=== PATIENT | female | born 1990 | race Hispanic/Latino ===

== ENCOUNTER 2019-04-14 12:05 | Emergency (ER) | payer SELFPAY ==
--- NOTE | 2019-04-14 13:19 | ER ---
Nurse's Notes [facility] Name: Juliet Guzmán Age: 28 yrs Sex: Female : 1990 Arrival Date: 04/14/2019 Time: 12:07 Bed Treatment Private MD: Diagnosis: Influenza due to other identified influenza virus-flu B Presentation: 04/14 12:24 Presenting complaint: Patient states: Chills and body aches since yesterday, daughter yajaira just got over the flu. Transition of care: patient was not received from another setting of care. Onset of symptoms was April 13, 2019. Risk Assessment: Do you want to hurt yourself or someone else? Patient reports no desire to harm self or others. Initial Sepsis Screen: Does the patient meet any 2 criteria? No. Patient's initial sepsis screen is negative. Does the patient have a suspected source of infection? No. Patient's initial sepsis screen is negative. Care prior to arrival: None. 12:24 Method Of Arrival: Ambulatory [facility] 12:24 Acuity: KISHAN 4 jl7 Triage Assessment: 12:26 General: Appears in no apparent distress. uncomfortable, Behavior is calm, cooperative, jl7 appropriate for age. Pain: Complains of pain in all over Pain currently is 7 out of 10 on a pain scale. Quality of pain is described as aching. 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 - Social history:: Smoking status: Patient/guardian denies using tobacco. - Ebola Screening: : No symptoms or risks identified at this time. Screenin:24 Abuse screen: Denies threats or abuse. Denies injuries from another. Nutritional iw screening: No deficits noted. Tuberculosis screening: No symptoms or risk factors identified. Fall Risk None identified. Assessment: 13:00 General: Appears in no apparent distress. comfortable, Behavior is calm, cooperative. iw General: Reports fever for feeling ill for fatigue for. Neuro: Level of Consciousness is awake, alert, obeys commands, Oriented to person, place, time, situation, Moves all extremities. Full function. Cardiovascular: Patient's skin is warm and dry. Respiratory: Respiratory effort is even, unlabored, Respiratory pattern is regular, symmetrical. Derm: Skin is intact, is healthy with good turgor. Musculoskeletal: Range of motion: intact in all extremities. Vital Signs: 12:26 BP 124 / 80; Pulse 104; Resp 19 S; Temp 98.8(O); Pulse Ox 98% on R/A; Weight 127.01 kg jl7 (R); Height 5 ft. 1 in. (154.94 cm) (R); Pain 7/10; 12:26 Body Mass Index 52.90 (127.01 kg, 154.94 cm) 7 ED Course: 12:07 Patient arrived in ED. mr 12:25 Triage completed. jl7 12:26 Arm band placed on right wrist. jl7 12:29 Hector Portillo PA is PHCP. cp 12:29 Elijah Stacy MD is Attending Physician. cp 12:32 Flu and/or RSV swab sent to lab. jl7 12:59 Connie Underwood, RN is Primary Nurse. iw 13:00 Patient has correct armband on for positive identification. iw 13:24 No provider procedures requiring assistance completed. Patient did not have IV access iw during this emergency room visit. Administered Medications: No medications were administered Outcome: 13:18 Discharge ordered by MD. cp 13:24 Discharged to home ambulatory, with family. iw 13:24 Condition: good 13:24 Discharge instructions given to patient, family, Instructed on discharge instructions, follow up and referral plans. medication usage, Demonstrated understanding of instructions, follow-up care, medications, Prescriptions given X 1. 13:25 Patient left the ED. iw Signatures: Emani Mcelroy Connie Underwood, RN RN iw Hector Portillo PA PA cp Joy Holm RN RN jl7
--- NOTE | 2019-04-14 13:19 | EDPHYS ---
Physician Documentation [facility] Name: Juliet Guzmán Age: 28 yrs Sex: Female : 1990 Arrival Date: 04/14/2019 Time: 12:07 Bed Treatment Private MD: ED Physician Elijah Stacy HPI: 04/14 12:45 This 28 yrs old Female presents to ER via Ambulatory with complaints of Flu cp Symptoms. 12:45 The patient or guardian reports cough, that is intermittent. cp 12:45 Onset: The symptoms/episode began/occurred yesterday. Associated signs and symptoms: cp Pertinent positives: fever, sore throat, body aches, chills. Patient reports daughter recently diagnosed and currently being treated for flu. 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 - Social history:: Smoking status: Patient/guardian denies using tobacco. - Ebola Screening: : No symptoms or risks identified at this time. ROS: 12:50 Constitutional: Positive for body aches, chills, Negative for fever, poor PO intake. cp 12:50 Eyes: Negative for injury, pain, redness, and discharge. cp 12:50 ENT: Positive for sore throat, Negative for drainage from ear(s), ear pain, difficulty swallowing, difficulty handling secretions. 12:50 Cardiovascular: Negative for chest pain. 12:50 Respiratory: Positive for cough, "sounds productive", Negative for shortness of breath, wheezing. 12:50 Abdomen/GI: Negative for abdominal pain, vomiting, diarrhea, constipation. 12:50 Skin: Negative for rash. 12:50 All other systems are negative. Exam: 12:55 Constitutional: The patient appears in no acute distress, alert, awake, non-toxic, well cp developed, well nourished. 12:55 Head/Face: Normocephalic, atraumatic. cp 12:55 Eyes: Periorbital structures: appear normal, Conjunctiva: normal, no exudate, no injection, Lids and lashes: appear normal, bilaterally. 12:55 ENT: External ear(s): are unremarkable, Ear canal(s): are normal, clear, TM's: dullness, bilaterally, Nose: is normal, Mouth: Lips: moist, Oral mucosa: pink and intact, moist, Posterior pharynx: Airway: no evidence of obstruction, patent, Tonsils: no enlargement, no exudate, erythema, that is mild, exudate, is not appreciated. 12:55 Neck: ROM/movement: Meningeal signs: are not present, nuchal rigidity, is not appreciated, Lymph nodes: no appreciated lymphadenopathy. 12:55 Chest/axilla: Inspection: normal. 12:55 Cardiovascular: Rate: tachycardic, Rhythm: regular. 12:55 Respiratory: the patient does not display signs of respiratory distress, Respirations: normal, no use of accessory muscles, no retractions, no splinting, no tachypnea, labored breathing, is not present, Breath sounds: decreased breath sounds, are not appreciated, stridor, is not appreciated, + upper airway congestion. wheezing: is not appreciated. 12:55 Abdomen/GI: Inspection: abdomen appears normal. Vital Signs: 12:26 BP 124 / 80; Pulse 104; Resp 19 S; Temp 98.8(O); Pulse Ox 98% on R/A; Weight 127.01 kg jl7 (R); Height 5 ft. 1 in. (154.94 cm) (R); Pain 7/10; 12:26 Body Mass Index 52.90 (127.01 kg, 154.94 cm) jl7 MDM: 12:38 Patient medically screened. cp 13:00 Differential diagnosis: bronchitis, flu, URI, strep throat. cp 13:18 Antibiotic administration: Not indicated, the patient has a suspected viral illness. cp 13:18 Data reviewed: vital signs, nurses notes, lab test result(s), and as a result, I will cp discharge patient. Counseling: I had a detailed discussion with the patient and/or guardian regarding: the historical points, exam findings, and any diagnostic results supporting the discharge/admit diagnosis, lab results, to return to the emergency department if symptoms worsen or persist or if there are any questions or concerns that arise at home. 04/14 12:28 Order name: Flu; Complete Time: 13:17 jl7 04/14 13:17 Interpretation: Abnormal: FLUB FLU B ----- \\T\\nbsp; \\T\\nbsp; \\T\\nbsp; \\T\\nbsp; \\T\\nbsp; \\T\\nbs p; cp \\T\\nbsp; \\T\\nbsp; \\T\\nbsp; POSITIVE for FLU B protein antigen. Administered Medications: No medications were administered Disposition: 04/15 07:31 Co-signature as Attending Physician, Elijah Stacy MD I agree with the assessment and kdr plan of care. Disposition: 04/14/19 13:18 Discharged to Home. Impression: Influenza due to other identified influenza virus - flu B. - Condition is Stable. - Discharge Instructions: Influenza, Adult. - Prescriptions for Tamiflu 75 mg Oral Capsule - take 1 tablet by ORAL route every 12 hours for 5 days; 10 tablet. - Medication Reconciliation Form, Thank You Letter, Antibiotic Education, Prescription Opioid Use form. - Follow up: Private Physician; When: 2 - 3 days; Reason: Worsening of condition. - Problem is new. - Symptoms are unchanged. Signatures: Dispatcher [employer] Elijah Stacy MD MD kdr Connie Underwood, RN RN iw Hector Portillo PA PA cp Joy Holm, RN RN jl7 Corrections: (The following items were deleted from the chart) 04/14 13:25 13:18 04/14/2019 13:18 Discharged to Home. Impression: Influenza due to other iw identified influenza virus - flu B. Condition is Stable. Forms are Medication Reconciliation Form, Thank You Letter, Antibiotic Education, Prescription Opioid Use. Follow up: Private Physician; When: 2 - 3 days; Reason: Worsening of condition. Problem is new. Symptoms are unchanged. cp
[2019-04-14 13:31] VITALS: BP 124/80; TEMP 98.8; O2SAT 98
== END 2019-04-14 13:25 | disposition home or self-care (01) ==
LOC: ER 12:05
DX: J10.1 Influenza due to other identified influenza virus with other respiratory manifestations (principal)
CPT/HCPCS: 87804; 99283